=== PATIENT | female | born 1995 | race Caucasian/White ===

== ENCOUNTER 2018-10-26 04:30 | Inpatient (IN) | payer OTHER ==
[2018-10-26] MEDS ORDERED: MISOPROSTOL 200 MCG TAB PR (06:00)
[2018-10-26] MEDS ORDERED: OXYTOCIN 30 UNITS/LR 500 ML IV (06:00)
[2018-10-26] MEDS ORDERED: CARBOPROST 250 MCG INJ IM (06:00)
[2018-10-26] MEDS ORDERED: IBUPROFEN 600 MG TAB PO (06:00)
[2018-10-26] MEDS ORDERED: BUTORPHANOL 2 MG INJ IV (06:00)
[2018-10-26] MEDS ORDERED: METHYLERGONOVINE 0.2 MG INJ IM (06:00)
[2018-10-26 06:15] LABS: ADD UMIC NO; UR ASCORBIC ACID NEGATIVE (NEGATIVE); UR BILIRUBIN (Dip) NEGATIVE (NEGATIVE); UR BLOOD (Dip) NEGATIVE (NEGATIVE); UR CLARITY CLEAR (CLEAR); UR COLOR YELLOW (YELLOW); UR GLUCOSE (Dip) NEGATIVE (NEGATIVE); UR KETONES (Dip) NEGATIVE (NEGATIVE); UR LEUKOCYTE ESTERASE (Dip) NEGATIVE Leu/ul (NEGATIVE); UR NITRITE (Dip) NEGATIVE (NEGATIVE); UR TOTAL PROTEIN (Dip) NEGATIVE (NEGATIVE); UR UROBILINOGEN (Dip) NEGATIVE (NEGATIVE)
[2018-10-26] MEDS: LACTATED RINGER'S 1,000 ML IV ×4 (06:34→21:16)
[2018-10-26 06:45] LABS: ADD MAN DIFF? NO
[2018-10-26 06:48] LABS: WHITE BLOOD COUNT 9.6 10^3/ul (4.8-10.8)
[2018-10-26 06:48] LABS: BASOPHILS % 0.2 % (0.0-2.0); EOSINOPHILS % 0.3 % (0.0-7.0); HEMATOCRIT 31.5 % (37.0-47.0); HEMOGLOBIN 9.9 g/dl (12.0-16.0); LYMPHOCYTES # 1.2 10^3/ul (0.8-2.9); LYMPHOCYTES % 12.6 % (15.0-51.0); MEAN CORPUSCULAR HEMOGLOBIN 25.7 pg (29.0-33.0); MEAN CORPUSCULAR HGB CONC 31.4 g/dl (32.0-37.0); MEAN CORPUSCULAR VOLUME 81.8 fl (82.0-101.0); MEAN PLATELET VOLUME 12.2 fl (7.4-10.4); MONOCYTE # 0.6 10^3/ul (0.3-0.9); MONOCYTES % 6.5 % (0.0-11.0); NEUTROPHIL # 7.6 10^3/ul (1.6-7.5); NEUTROPHILS % 79.7 % (39.0-77.0); PLATELET COUNT 181 10^3/UL (140-415); RED BLOOD COUNT 3.85 10^6/ul (4.20-5.40); RED CELL DISTRIBUTION WIDTH 13.7 % (11.5-14.5)
[2018-10-26 07:15] LABS: INR 0.84; PARTIAL THROMBOPLASTIN TIME 29.7 Sec (23.0-35.0); PROTIME 11.6 Sec (11.9-14.9); PT RATIO 0.9
[2018-10-26 07:48] LABS: HEPATITIS B SURFACE ANTIGEN NEGATIVE (NEGATIVE)
[2018-10-26] MEDS: BUTORPHANOL 2 MG INJ IV (08:42)
[2018-10-26] MEDS ORDERED: FENTAnyl 2MCG/ML-ROPIV 0.2% 100 ML (11:34)
[2018-10-26] MEDS ORDERED: NALOXONE (0.4 MG/ML) INJ IV (12:00)
[2018-10-26] MEDS ORDERED: DIPHENHYDRAMINE 50 MG INJ IV (12:00)
[2018-10-26 16:49] LABS: RAPID PLASMA REAGIN NONREACTIVE (NR)
[2018-10-26] MEDS: FENTAnyl 2MCG/ML-ROPIV 0.2% 100 ML BAG EPI (19:26)
[2018-10-26] MEDS: OXYTOCIN 30 UNITS/LR 500 ML IV (21:10)
[2018-10-27] MEDS ORDERED: ACETAMINOPHEN 500 MG TAB PO (01:30)
[2018-10-27] MEDS: AMPICILLIN 2 GM/NS (PMX) 100 ML IV (01:37)
[2018-10-27] MEDS: FENTAnyl 2MCG/ML-ROPIV 0.2% 100 ML BAG EPI ×3 (02:13→11:24)
[2018-10-27] MEDS: LACTATED RINGER'S 1,000 ML IV ×2 (05:22→10:49)
[2018-10-27] MEDS: AMPICILLIN 1 GM/NS (PMX) 50 ML IV ×3 (05:22→13:45)
[2018-10-27] MEDS: ONDANSETRON 4 MG INJ IV (07:35)
[2018-10-27] MEDS: OXYTOCIN 30 UNITS/LR 500 ML IV ×4 (10:18→21:22)
[2018-10-27] MEDS: LIDOCAINE 1% (MPF) 30 ML INJ INJ (17:26)
[2018-10-27] MEDS ORDERED: CARBOPROST 250 MCG INJ IM (18:00)
[2018-10-27] MEDS ORDERED: METHYLERGONOVINE 0.2 MG INJ IM (18:00)
[2018-10-27] MEDS ORDERED: OXYTOCIN 30 UNITS/LR 500 ML IV (18:00)
[2018-10-27] MEDS ORDERED: MISOPROSTOL 200 MCG TAB PR (18:00)
[2018-10-27] MEDS ORDERED: HYDROCODONE/APAP (5/325) TAB PO (18:00)
[2018-10-27] MEDS: IBUPROFEN 600 MG TAB PO (18:51)
[2018-10-27] MEDS: LANOLIN HPA 1 PKT TOP (21:18)
[2018-10-27] MEDS: BENZOCAINE 20% 56 ML SPRAY TOP (21:18)
[2018-10-27] MEDS: LACTATED RINGER'S 1,000 ML IV* (21:50)
[2018-10-28] MEDS: IBUPROFEN 600 MG TAB PO ×5 (00:42→23:39)
[2018-10-28] MEDS: LACTATED RINGER'S 1,000 ML IV* (01:52)
[2018-10-28] MEDS: OXYTOCIN 30 UNITS/LR 500 ML IV (03:52)
[2018-10-28 05:21] LABS: ADD MAN DIFF? NO
[2018-10-28 05:34] LABS: WHITE BLOOD COUNT 12.5 10^3/ul (4.8-10.8)
[2018-10-28 05:34] LABS: BASOPHILS % 0.2 % (0.0-2.0); EOSINOPHILS % 0.1 % (0.0-7.0); HEMOGLOBIN 7.5 g/dl (12.0-16.0); LYMPHOCYTES # 1.4 10^3/ul (0.8-2.9); LYMPHOCYTES % 11.2 % (15.0-51.0); MEAN CORPUSCULAR HEMOGLOBIN 25.6 pg (29.0-33.0); MEAN CORPUSCULAR HGB CONC 31.3 g/dl (32.0-37.0); MEAN CORPUSCULAR VOLUME 81.9 fl (82.0-101.0); MEAN PLATELET VOLUME 12.4 fl (7.4-10.4); MONOCYTE # 0.9 10^3/ul (0.3-0.9); MONOCYTES % 6.9 % (0.0-11.0); NEUTROPHIL # 10.2 10^3/ul (1.6-7.5); NEUTROPHILS % 81.3 % (39.0-77.0); PLATELET COUNT 153 10^3/UL (140-415); RED BLOOD COUNT 2.93 10^6/ul (4.20-5.40); RED CELL DISTRIBUTION WIDTH 14.1 % (11.5-14.5)
[2018-10-28] MEDS: SENNA/DOCUSATE NA (8.6MG/50MG) TAB PO ×2 (09:06→21:19)
[2018-10-28] MEDS: MEASLES,MUMPS,RUBELLA VACCINE INJ SC* (14:45)
[2018-10-29] MEDS: IBUPROFEN 600 MG TAB PO ×2 (05:33→12:17)
[2018-10-29] MEDS ORDERED: DIPHTH/TET/ACEL PERTUSS (ADULT) 0.5 ML VIAL IM* (09:00)
[2018-10-29] MEDS: SENNA/DOCUSATE NA (8.6MG/50MG) TAB PO (09:59)
[2018-10-29] MEDS: LANOLIN HPA 1 PKT TOP (09:59)
[2018-10-29] MEDS: BENZOCAINE 20% 56 ML SPRAY TOP (13:27)
== END 2018-10-29 14:05 | disposition home or self-care (01) | DRG 807 ==
LOC: OBT 04:30 → MS1 10-27 20:09 → L-D 04:30 → OBT 05:45 → L-D 05:45
PROC: 10E0XZZ Delivery of Products of Conception, External Approach (ICD-10-PCS; principal; 2018-10-27)
PROC: 0HQ9XZZ Repair Perineum Skin, External Approach (ICD-10-PCS; 2018-10-27)
DX: O70.0 First degree perineal laceration during delivery (principal); Z37.0 Single live birth; Z3A.39 39 weeks gestation of pregnancy
CPT/HCPCS: 62322; 81003; 85025; 85610; 85730; 86592; 86850; 86900; 86901; 87086; 87340; 99464